=== PATIENT | male | born 1950 | race Caucasian/White ===

== ENCOUNTER → 2023-10-18 10:37 | Outpatient (REF) | payer OTHER, SELFPAY | LOC: RAD 10:37 | PROVIDERS: ATTENDING PHYSICIAN Nurse Practitioner Family; FAMILY PHYSICIAN Internal Medicine | DX: R05.1 Acute cough (principal) | CPT/HCPCS: 71046 ==

== ENCOUNTER → 2024-04-11 08:28 | Outpatient (REF) | payer OTHER, SELFPAY | LOC: MRI 3T 08:28 | PROVIDERS: ATTENDING PHYSICIAN Physical Medicine & Rehabilitation; FAMILY PHYSICIAN Internal Medicine | DX: M54.51 Vertebrogenic low back pain (principal) | CPT/HCPCS: 72148 ==

== ENCOUNTER 2024-05-28 11:59 | Emergency (ER) | payer OTHER, SELFPAY ==
[2024-05-28 12:00] VITALS: BP 127/63
--- NOTE | 2024-05-28 13:57 | ED.GENMED ---
History of Present Illness
General
Chief Complaint: Musculo-Skeletal Complaint
Time Seen by Provider: 05/28/24 13:27
History of Present Illness
History of Present Illness:
73-year-old male with history of kidney disease, diabetes, hypertension, depression presenting to the emergency department for left upper extremity pain. Patient reports symptoms for the past week. He is unsure of any inciting injury or trauma, is
unsure if he slept wrong on his arm. He notes the pain radiates to his elbow and upper chest. He called his service clerk who advised to come to the hospital. Denies any difficulty breathing. Does not feel that the pain is positional. Denies
difficulty breathing. Denies fever or cough. Denies additional acute medical complaint
Past History
Past History
ED Past Medical History: CAD, CHF, COPD, GERD, NIDDM, [place], Psychiatric (depression, Anxiety, PTSD), Other (UC, sleep apnea, previous empyema 12 years ago. DVT, Urinary retention) and Other (Chronic pain, ulcerative colitis with no treatment
currently, chronic renal insufficiency)
ED Past Surgical History: Orthopedic (amputation left great toe, Back surgery, ) and Other (Thoracotomy)
Social History
Tobacco: Former smoker
Alcohol: None
Personal:
Living: alone
Employment: Employed
Family History
Family History: Other (Mother with non-Hodgkin's lymphoma, father with alcohol brother with alcohol use)
Phy Exam
Physical Exam
Physical Exam:
General: Well-appearing, no clinical signs of dehydration, nontoxic and in no acute distress
HEENT: protecting airway
Neck: appears supple
CV: Normal heart rate, regular rhythm
Resp: No accessory muscle use, no increased work of breathing, lungs clear to auscultation bilaterally
Abd: no distension
Extremities: No deformities, no swelling. Reproducible tenderness to the left shoulder region, anteriorly. Range of motion intact. No swelling or redness.
Neuro: alert, no focal neurologic deficit
: deferred
Rectal: deferred
Psych: Normal affect
Skin: Intact
Course
Orders/Labs/Results
Orders:
Orders
05/28/24 12:04
Electrocardiogram (*1) Urgent
Reason for Study: Other
Other Reason for Exam: left arm pain
EKG- Treatment ONCE
05/28/24 13:53
Shoulder, Left 2 View CR [CR Shoulder - Left Min 2 View*] Urgent
Comment:
Reason For Exam: pain
05/28/24 14:35
Complete Blood Count/With Diff Urgent
Comprehensive Metabolic Panel Urgent
Troponin I Urgent
Abnormal Lab Results
05/28/24
14:35
RBC 4.53 L 10^6/uL
(4.70-6.10)
Abs Immat Gran (auto) 0.1 H 10^3/uL
(0-0.05)
Absolute Monos (auto) 0.7 H 10^3/uL
(0.1-0.6)
Immature Gran % 0.8 H %
(0-0.5)
Monocytes % 11.0 H %
(1.7-9.3)
Chloride 96 L mmol/L
(98-107)
Carbon Dioxide 40 H mmol/L
(22-30)
BUN 42 H mg/dl
(9-20)
Creatinine 1.7 H mg/dL
(0.7-1.3)
Glucose 190 H mg/dl
(70-99)
05/28/24 14:35
05/28/24 14:35
Vital Signs
Initial and Last Documented VS:
Initial Vital Signs
Temp Pulse Resp BP Pulse Ox
98.4 F 82 18 127/63 96
05/28/24 12:00 05/28/24 12:00 05/28/24 12:00 05/28/24 12:00 05/28/24 12:00
Last Documented Vital Signs
Temp Pulse Resp BP Pulse Ox
98.4 F 69 17 115/64 96
05/28/24 12:00 05/28/24 15:00 05/28/24 15:00 05/28/24 15:00 05/28/24 12:00
MDM/Problems Addressed
MDM/Problems Addressed:
73-year-old male with history of high blood pressure, diabetes, depression, chronic kidney disease presenting left upper extremity pain for a week. Vital signs are normal.
On exam, patient is resting comfortably, no acute distress or discomfort. EKG obtained on arrival, nonischemic. Reproducible tenderness to the left shoulder region with suspicion for musculoskeletal etiology to patient's symptoms. However patient
does have significant comorbidities and cardiac risk factors, so for this reason we will obtain laboratory analysis including troponin. Will obtain x-ray imaging of the shoulder, suspected arthritic component.
16:00 -patient's labs unremarkable, chronic kidney disease. X-ray without findings of fracture or malalignment. Patient remained stable. Feel stable for discharge with outpatient follow-up and supportive therapy for suspected musculoskeletal
shoulder pain. Return precautions discussed and patient verbalized understanding
*EKG
Interpreted by ED Provider?: Yes
EKG Intrepretation Date: 05/28/24
EKG Intrepretation Time: 14:00
Interpretation: normal
Comparison EKG: no changes (11/28/22)
Heart Rate: 76
Rate: normal
Rhythm: sinus
[place]: normal axis
Interval: normal interval
QRS Pattern: normal QRS
Ischemia: no ischemia
*Critical Care Note
Total Time (30-74mins, 75-104mins- exclusive of procedures): Not Applicable
ED Attending Note
-
Portions of this chart may have been created with voice recognition software.� Occasional wrong word or��sound alike� substitutions may have occurred due to the inherent limitations of voice recognition software.
Discharge Plan
Departure
Prescriptions:
No Action
aspirin 81 MG tablet,delayed release (DR/EC)
81 mg PO DAILY
bupropion HCl 150 MG tablet extended release 24 hr
450 mg PO DAILY
mirtazapine 15 MG tablet
45 mg PO HS
furosemide 40 MG tablet
40 mg PO DAILY
glipizide 10 MG tablet
10 mg PO DAILY
carvedilol 3.125 MG tablet
6.25 mg PO BID
Jardiance 10 MG tablet
10 mg PO DAILY
Rx Instructions:
10/09/2022, patient receives samples
metformin 500 MG tablet
500 mg PO QPM
Januvia 50 MG tablet
50 mg PO DAILY
Rx Instructions:
10/09/2022, patient receives samples
fenofibrate nanocrystallized 48 MG tablet
160 mg PO QPM
metolazone 2.5 MG tablet
2.5 mg PO MOWEFRSA
polyethylene glycol 3350 17 GRAMS powder in packet
17 grams PO DAILY 0RF
Metamucil 3.4 gram/5.4 gram Powder
1 tbsp PO DAILY
tamsulosin [Flomax] 0.4 mg Capsule
0.8 mg PO DAILY
Rx Instructions:
pt states he is not compliant with; states it doesn't help; 10/09/2022, [facility]
escitalopram oxalate 10 mg Tablet
10 mg PO DAILY
atorvastatin 80 mg Tablet
80 mg PO QPM
ipratropium-albuterol 0.5 mg-3 mg(2.5 mg base)/3 mL Solution For Nebulization
3 ml inhalation R TID Qty: 180 0RF
guaifenesin 600 mg Tablet Extended Release 12hr
1,200 mg PO Q12 Qty: 14 0RF
pantoprazole 40 mg Tablet,Delayed Release (Dr/Ec)
40 mg PO BID Qty: 60 0RF
fentanyl 37.5 mcg/hour patch 72 hour
1 patch transdermal Q72H Qty: 5 0RF
doxycycline hyclate 100 mg Capsule
100 mg PO Q12 Qty: 6 0RF
cefdinir 300 mg Capsule
300 mg PO Q12 Qty: 6 0RF
Referrals:
Edilberto Beatty Jr., DO [Family Provider] -
Interventions
Interventions:
*Risk Screen - Suicide Last Done: 05/28/24 12:00
*General Assessment Last Done: 05/28/24 12:00
*Neglect/Abuse Screening Last Done: 05/28/24 12:00
*ED- Fall Risk Assessment Last Done: 05/28/24 15:17
*ED COVID-19 Vaccine History Last Done: 05/28/24 12:00
ED-Musculoskeletal Assessment Last Done: 05/28/24 14:36
Discharge Date and Time
Print Language: TAJIK
[2024-05-28 14:36] VITALS: BMI 35.5
[2024-05-28 14:39] VITALS: BP 124/74
[2024-05-28 15:00] VITALS: BP 115/64
[2024-05-28 15:00] LABS: % Basophils 1.3 % (0-2); % Eosinophils 5.1 % (0-6); % Immature Granulocytes 0.8 % (0-0.5); % Lymphocytes 29.4 % (20.5-51.1); % Neutrophils 52.4 % (42.2-75.2); Absolute Basophils 0.1 10^3/uL (0-0.2); Absolute Eosinophils 0.3 10^3/uL (0-0.7); Absolute Immature Granulocytes 0.1 10^3/uL (0-0.05); Absolute Lymphocytes 1.9 10^3/uL (1.2-3.4); Absolute Monocytes 0.7 10^3/uL (0.1-0.6); Absolute Neutrophils 3.3 10^3/uL (1.4-6.5); Hematocrit 41.1 % (39.0-52.0); Hemoglobin 13.6 g/dL (13.0-18.0); Mean Corp Hgb Conc. 33.1 g/dL (33.0-37.0); Mean Corpuscular Volume 90.7 fL (80.0-94.0); Mean Platelet Volume 9.2 fL (7.4-10.4); Nucleated Red Blood Cells % 0 % (-); Platelet Count 242 10^3/uL (130-400); Red Blood Cell Count 4.53 10^6/uL (4.70-6.10); Red Cell Dist. Width 13.2 % (11.5-14.5); White Blood Cell Count 6.3 10^3/uL (4.8-10.8)
[2024-05-28 15:07] LABS: ALT (SGPT) 22 U/L (0-50); AST (SGOT) 24 U/L (17-59); Albumin 4.1 g/dl (3.5-5.0); Alkaline Phosphatase 72 U/L (38-126); Blood Urea Nitrogen 42 mg/dl (9-20); Calcium 10.1 mg/dl (8.4-10.2); Carbon Dioxide 40 mmol/L (22-30); Chloride 96 mmol/L (98-107); Estimated Creatinine Clearance 56 ml/min; Glucose 190 mg/dl (70-99); Potassium 4.1 mmol/L (3.5-5.1); Sodium 139 mmol/L (135-145); Total Bilirubin 0.3 mg/dl (0.2-1.3); Total Protein 7.1 g/dl (6.3-8.2); eGFR 42.57
[2024-05-28 15:18] LABS: Troponin I < 0.012 ng/ml
[2024-05-28 16:00] VITALS: BP 118/67
== END 2024-05-28 16:56 | disposition home or self-care (01) ==
LOC: EMR 11:59
PROVIDERS: EMERGENCY PHYSICIAN Student in an Organized Health Care Education/Training Program; FAMILY PHYSICIAN Family Medicine
DX: M79.602 Pain in left arm (principal); I25.10 Atherosclerotic heart disease of native coronary artery without angina pectoris; E11.9 Type 2 diabetes mellitus without complications; G47.30 Sleep apnea, unspecified; I13.0 Hypertensive heart and chronic kidney disease with heart failure and stage 1 through stage 4 chronic kidney disease, or unspecified chronic kidney disease; I50.9 Heart failure, unspecified; N18.9 Chronic kidney disease, unspecified; J44.9 Chronic obstructive pulmonary disease, unspecified; Z86.718 Personal history of other venous thrombosis and embolism; Z87.891 Personal history of nicotine dependence
CPT/HCPCS: 99284; 73030; 80053; 84484; 85025; 93005

== ENCOUNTER → 2024-06-09 13:03 | Outpatient (REF) | payer OTHER, SELFPAY | LOC: RAD 13:03 | PROVIDERS: ATTENDING PHYSICIAN Internal Medicine Rheumatology; FAMILY PHYSICIAN Internal Medicine; OTHER PHYSICIAN Family Medicine; OTHER PHYSICIAN Internal Medicine Rheumatology | DX: G89.29 Other chronic pain (principal); M25.531 Pain in right wrist; M79.643 Pain in unspecified hand | CPT/HCPCS: 73110; 73130 ==

== ENCOUNTER → 2024-07-01 11:12 | Outpatient (REF) | payer OTHER, SELFPAY | LOC: RAD 11:12 | PROVIDERS: ATTENDING PHYSICIAN Internal Medicine Rheumatology; FAMILY PHYSICIAN Internal Medicine | DX: M81.0 Age-related osteoporosis without current pathological fracture (principal); M81.8 Other osteoporosis without current pathological fracture | CPT/HCPCS: 77080 ==

== ENCOUNTER → 2024-07-13 13:33 | Outpatient (REF) | payer OTHER, SELFPAY | LOC: RAD 13:33 | PROVIDERS: ATTENDING PHYSICIAN Family Medicine | DX: M25.531 Pain in right wrist (principal); M25.532 Pain in left wrist | CPT/HCPCS: 73110 ==

== ENCOUNTER 2024-08-21 17:02 | Emergency (ER) | payer OTHER, SELFPAY ==
[2024-08-21 17:04] VITALS: BP 145/85
--- NOTE | 2024-08-21 19:08 | ED.GENMED ---
History of Present Illness
General
Chief Complaint: DVT/Possible Blood Clot
Source: patient
Exam Limitations: none
Time Seen by Provider: 08/21/24 18:26
Nursing documentation reviewed up to this point in time: agreed with
History of Present Illness
History of Present Illness:
73-year-old male presents Emergency Department due to left elbow swelling. This been ongoing for 2 to 3 days. He called his primary care doctor who directed him to the emergency department..
Past History
Past History
ED Past Medical History: CAD, CHF, COPD, GERD, NIDDM, [place], Psychiatric (depression, Anxiety, PTSD), Other (UC, sleep apnea, previous empyema 12 years ago. DVT, Urinary retention) and Other (Chronic pain, ulcerative colitis with no treatment
currently, chronic renal insufficiency)
ED Past Surgical History: Orthopedic (amputation left great toe, Back surgery, ) and Other (Thoracotomy)
Social History
Tobacco: Former smoker
Alcohol: None
Personal:
Living: alone
Employment: Employed
Family History
Family History: Other (Mother with non-Hodgkin's lymphoma, father with alcohol brother with alcohol use)
Review of Systems
Review of Systems
Allergies reviewed?: Yes
All Other Systems: Not applicable
Constitutional: Reports no symptoms
EENT: Reports no symptoms
Respiratory: Reports no symptoms
Cardiac: Reports no symptoms
ABD/GI: Reports no symptoms
: Reports no symptoms
Musculoskeletal: Reports joint swelling
Skin: Reports no symptoms
Neurological: Reports no symptoms
Endocrine: Reports no symptoms
Hematologic/Lymphatic: Reports no symptoms
Psychiatric: Reports no symptoms
Phy Exam
Physical Exam
Physical Exam:
Physical Exam
General: no apparent distress, not acutely ill
Neck: supple. no meningeal signs. normal posterior pharynx
Heart: equal radial pulses.
HEENT: Pupils equal round reactive to light, EOMI
Lungs: no acute respiratory distress. GFR with Mounjaro 5
Abdomen: normal bowel sounds. not tender. no CVAT
Neuro: alert and oriented. no focal neurological deficits
Skin: no rash
Psychiatric: well kept. interactive and cooperative
Extremities: olecranon bursa swelling. no calf tenderness. negative homans. good distal pulses
Course
Orders/Labs/Results
Orders:
Orders
08/21/24 19:07
CR Elbow - Left Min 3 Views Urgent
Comment:
Reason For Exam: left elbow swelling
08/21/24 19:43
[place] Wrap Left-Treatment ONCE
Comment: left forearm elbow, area of swelling
Vital Signs
Initial and Last Documented VS:
Initial Vital Signs
Temp Pulse Resp BP Pulse Ox
98.0 F 84 18 145/85 94
08/21/24 17:04 08/21/24 17:04 08/21/24 17:04 08/21/24 17:04 08/21/24 17:04
Last Documented Vital Signs
Temp Pulse Resp BP Pulse Ox
98 F 72 18 97/71 90
08/21/24 19:20 08/21/24 19:20 08/21/24 19:20 08/21/24 19:20 08/21/24 19:20
MDM/Problems Addressed
Differential Diagnosis Includes:
Infected bursitis, DVT
MDM/Problems Addressed:
73-year-old male with left olecranon bursitis. Does not appear infected, no rash or erythema. Treat with [place] wrap, follow-up with orthopedics.
Chronic conditions affecting care: Cardiomyopathy, COPD and Other (Ulcerative colitis)
*Radiology
Radiology exam reviewed: preliminary read by ED provider (Left elbow x-ray no signs of fracture)
*Pulse Oximetry
Patient hypoxic: no
*Critical Care Note
Total Time (30-74mins, 75-104mins- exclusive of procedures): Not Applicable
Data Reviewed
Further Testing Considered But Not Given:
US not indicated
Patient Management
Social determinants of health affecting care: Living situation and Strong social support
Escalation/DeEscalation of care consider admission/obs:
admit not indicated
ED Attending Note
-
Portions of this chart may have been created with voice recognition software.� Occasional wrong word or��sound alike� substitutions may have occurred due to the inherent limitations of voice recognition software.
Discharge Plan
Departure
Patient Disposition: Home (Routine Discharge)
Date of Disposition: 08/21/24
Time of Disposition: 19:47
Patient with high blood pressure during this ER visit?: No
Condition: Good
Discharge Problem:
Olecranon bursitis, left elbow
Instructions: Bursitis - ED discharge instructions
Prescriptions:
No Action
aspirin 81 MG tablet,delayed release (DR/EC)
81 mg PO DAILY
bupropion HCl 150 MG tablet extended release 24 hr
450 mg PO DAILY
mirtazapine 15 MG tablet
45 mg PO HS
furosemide 40 MG tablet
40 mg PO DAILY
glipizide 10 MG tablet
10 mg PO DAILY
carvedilol 3.125 MG tablet
6.25 mg PO BID
Jardiance 10 MG tablet
10 mg PO DAILY
Rx Instructions:
10/09/2022, patient receives samples
metformin 500 MG tablet
500 mg PO QPM
Januvia 50 MG tablet
50 mg PO DAILY
Rx Instructions:
10/09/2022, patient receives samples
fenofibrate nanocrystallized 48 MG tablet
160 mg PO QPM
metolazone 2.5 MG tablet
2.5 mg PO MOWEFRSA
polyethylene glycol 3350 17 GRAMS powder in packet
17 grams PO DAILY 0RF
Metamucil 3.4 gram/5.4 gram Powder
1 tbsp PO DAILY
tamsulosin [Flomax] 0.4 mg Capsule
0.8 mg PO DAILY
Rx Instructions:
pt states he is not compliant with; states it doesn't help; 10/09/2022, cannot find medication in the [facility]
escitalopram oxalate 10 mg Tablet
10 mg PO DAILY
atorvastatin 80 mg Tablet
80 mg PO QPM
ipratropium-albuterol 0.5 mg-3 mg(2.5 mg base)/3 mL Solution For Nebulization
3 ml inhalation R TID Qty: 180 0RF
guaifenesin 600 mg Tablet Extended Release 12hr
1,200 mg PO Q12 Qty: 14 0RF
pantoprazole 40 mg Tablet,Delayed Release (Dr/Ec)
40 mg PO BID Qty: 60 0RF
fentanyl 37.5 mcg/hour patch 72 hour
1 patch transdermal Q72H Qty: 5 0RF
doxycycline hyclate 100 mg Capsule
100 mg PO Q12 Qty: 6 0RF
cefdinir 300 mg Capsule
300 mg PO Q12 Qty: 6 0RF
Referrals:
Edilberto Beatty Jr., [Family Provider, Internal Medicine]
Vinayak Nguyen MD [Active, Orthopedics] - Follow up in 2-3 days
Interventions
Interventions:
*Risk Screen - Suicide Last Done: 08/21/24 17:06
*General Assessment Last Done: 08/21/24 17:06
*Neglect/Abuse Screening Last Done: 08/21/24 17:06
*ED COVID-19 Vaccine History Last Done: 08/21/24 17:06
ED- Cardiac Assessment Last Done: 08/21/24 19:20
ED- Pulmonary Assessment Last Done: 08/21/24 19:20
ED-Peripheral Vascular Assessment Last Done: 08/21/24 19:22
ED-Skin Assessment Last Done: 08/21/24 19:20
Discharge Date and Time
Print Language: NORWEGIAN
[2024-08-21 19:20] VITALS: BP 97/71; BMI 35.0
[2024-08-21 19:59] VITALS: BP 100/78
== END 2024-08-21 20:07 | disposition home or self-care (01) ==
LOC: EMR 17:02
PROVIDERS: EMERGENCY PHYSICIAN Emergency Medicine; FAMILY PHYSICIAN Family Medicine
DX: M70.22 Olecranon bursitis, left elbow (principal); I25.10 Atherosclerotic heart disease of native coronary artery without angina pectoris; E11.9 Type 2 diabetes mellitus without complications; G47.30 Sleep apnea, unspecified; G89.29 Other chronic pain; I50.9 Heart failure, unspecified; J44.9 Chronic obstructive pulmonary disease, unspecified; Z86.718 Personal history of other venous thrombosis and embolism; Z87.891 Personal history of nicotine dependence
CPT/HCPCS: 99283; 73080

== ENCOUNTER 2024-08-28 13:36 | Emergency (ER) | payer OTHER, SELFPAY ==
[2024-08-28 13:39] VITALS: BP 96/69
[2024-08-28 14:07] LABS: % Eosinophils 5.3 % (0-6); % Immature Granulocytes 0.7 % (0-0.5); % Lymphocytes 21.9 % (20.5-51.1); % Monocytes 9.6 % (1.7-9.3); % Neutrophils 61.5 % (42.2-75.2); Absolute Basophils 0.1 10^3/uL (0-0.2); Absolute Eosinophils 0.5 10^3/uL (0-0.7); Absolute Immature Granulocytes 0.1 10^3/uL (0-0.05); Absolute Lymphocytes 1.9 10^3/uL (1.2-3.4); Absolute Monocytes 0.9 10^3/uL (0.1-0.6); Absolute Neutrophils 5.4 10^3/uL (1.4-6.5); Hematocrit 42.2 % (39.0-52.0); Mean Corp Hgb Conc. 33.2 g/dL (33.0-37.0); Mean Corpuscular Hgb 29.3 pg (27.0-31.0); Mean Corpuscular Volume 88.3 fL (80.0-94.0); Nucleated Red Blood Cells % 0 % (-); Platelet Count 282 10^3/uL (130-400); Red Blood Cell Count 4.78 10^6/uL (4.70-6.10); Red Cell Dist. Width 13.4 % (11.5-14.5); White Blood Cell Count 8.8 10^3/uL (4.8-10.8)
[2024-08-28 14:24] LABS: ALT (SGPT) 20 U/L (0-50); AST (SGOT) 19 U/L (17-59); Albumin 4.4 g/dl (3.5-5.0); Alkaline Phosphatase 64 U/L (38-126); Blood Urea Nitrogen 37 mg/dl (9-20); Carbon Dioxide 26 mmol/L (22-30); Chloride 104 mmol/L (98-107); Glucose 313 mg/dl (70-99); Potassium 4.5 mmol/L (3.5-5.1); Sodium 139 mmol/L (135-145); Total Bilirubin 0.4 mg/dl (0.2-1.3); Total Protein 7.6 g/dl (6.3-8.2)
[2024-08-28 14:35] LABS: NT-proBNP 135 pg/ml; Troponin I < 0.012 ng/ml
--- NOTE | 2024-08-28 15:51 | ED.GENMED ---
History of Present Illness
General
Chief Complaint: Breathing Problem
Source: patient
Exam Limitations: none
Time Seen by Provider: 08/28/24 15:31
History of Present Illness
History of Present Illness:
74-year-old male with multiple vague complaints. He states he has been generally weak and fatigued. He has a history of congestive heart failure. He describes some episodes as 'syncope.' However he does not describe passing out. He gets weak to
the point where he feels like his get a fall. He never passes out or lose consciousness. There is no associated chest pain. He denies any unilateral numbness or weakness. There is no fever. This is been going on for quite some time. He called
his ethics instructor earlier in the week and advised him to come here to the emergency room. He lives by himself. He has no family support. No other complaints at this time
Past History
Past History
ED Past Medical History: CAD, CHF, COPD, GERD, NIDDM, [place], Psychiatric (depression, Anxiety, PTSD), Other (UC, sleep apnea, previous empyema 12 years ago. DVT, Urinary retention) and Other (Chronic pain, ulcerative colitis with no treatment
currently, chronic renal insufficiency)
ED Past Surgical History: Orthopedic (amputation left great toe, Back surgery, ) and Other (Thoracotomy)
Social History
Tobacco: Former smoker
Alcohol: None
Personal:
Living: alone
Employment: Employed
Family History
Family History: Other (Mother with non-Hodgkin's lymphoma, father with alcohol brother with alcohol use)
Phy Exam
Physical Exam
Physical Exam:
General: Well-appearing male no acute respiratory distress
HEENT normocephalic atraumatic heart: Regular rate and rhythm
Lungs: Clear no wheeze
Extremities: No cyanosis
Scores
Heart Failure Risk
Heart Failure Risk Score: Not Applicable
Course
Orders/Labs/Results
Orders:
Orders
08/28/24 13:39
Electrocardiogram (*1) Urgent
Reason for Study: Other
Other Reason for Exam: Respiratory Distress
Cardiac Monitoring- Treatment ONCE
EKG- Treatment ONCE
IV Insert/Care/Rem.- Treatment PRN
CR Chest - 2 Views Urgent
Comment:
Reason For Exam: respiratory distress
O2 Therapy [RESP] Urgent
Titrate/Wean O2 to maintain O2 sat greater than (%): 93
Special Instructions: TO MAINTAIN CONTINUOUS O2 SATS >/= 93%
Pulse Ox/cont/shift [RESP] Urgent
Quantity: 1
Special Instructions: continuous pulse ox
08/28/24 14:00
Complete Blood Count/With Diff Urgent
Comprehensive Metabolic Panel Urgent
NT-proBNP Urgent
Troponin I Urgent
08/28/24 15:50
CT Head W/o Iv Contrast Urgent
Comment:
Reason For Exam: falls
Abnormal Lab Results
08/28/24
14:00
Abs Immat Gran (auto) 0.1 H 10^3/uL
(0-0.05)
Absolute Monos (auto) 0.9 H 10^3/uL
(0.1-0.6)
Immature Gran % 0.7 H %
(0-0.5)
Monocytes % 9.6 H %
(1.7-9.3)
BUN 37 H mg/dl
(9-20)
Creatinine 1.8 H mg/dL
(0.7-1.3)
Glucose 313 H mg/dl
(70-99)
08/28/24 14:00
08/28/24 14:00
Vital Signs
Initial and Last Documented VS:
Initial Vital Signs
Temp Pulse Resp BP Pulse Ox
97.5 F 89 22 96/69 94
08/28/24 13:39 08/28/24 13:39 08/28/24 13:39 08/28/24 13:39 08/28/24 13:39
Last Documented Vital Signs
Temp Pulse Resp BP Pulse Ox
97.5 F 72 15 90/66 93
08/28/24 13:39 08/28/24 19:15 08/28/24 19:15 08/28/24 19:00 08/28/24 19:15
*Critical Care Note
Total Time (30-74mins, 75-104mins- exclusive of procedures): Not Applicable
Update Note
Update Note:
Chest x-ray demonstrates questionable pneumonia at the base. Patient did run a little low and her's oxygen 89% was placed on 2 L nasal cannula oxygen. White blood cell count is normal no fever here. Received a call from the nurse stating patient
wanted to go home. He expressed that there was his birthday recently in 5 days coming up. He lost his children that moved away and are now estranged from them years ago and he is quite depressed about this he wants to just go home to his
apartment. He is not suicidal. Will cover him for the potential for pneumonia. Explained to him that we do justify admission and would recommend it however he declined at this time
ED Attending Note
-
Portions of this chart may have been created with voice recognition software.� Occasional wrong word or��sound alike� substitutions may have occurred due to the inherent limitations of voice recognition software.
Discharge Plan
Departure
Patient Disposition: Home (Routine Discharge)
Date of Disposition: 08/28/24
Time of Disposition: 19:29
Patient with high blood pressure during this ER visit?: No
Discharge Problem:
Fatigue
Instructions: Shortness of Breath (Dyspnea) (DC)
Prescriptions:
New
doxycycline hyclate 100 mg tablet
100 mg PO BID Qty: 14 0RF
No Action
aspirin 81 MG tablet,delayed release (DR/EC)
81 mg PO DAILY
bupropion HCl 150 MG tablet extended release 24 hr
450 mg PO DAILY
mirtazapine 15 MG tablet
45 mg PO HS
furosemide 40 MG tablet
40 mg PO DAILY
glipizide 10 MG tablet
10 mg PO DAILY
carvedilol 3.125 MG tablet
6.25 mg PO BID
Jardiance 10 MG tablet
10 mg PO DAILY
Rx Instructions:
10/09/2022, patient receives samples
metformin 500 MG tablet
500 mg PO QPM
Januvia 50 MG tablet
50 mg PO DAILY
Rx Instructions:
10/09/2022, patient receives samples
fenofibrate nanocrystallized 48 MG tablet
160 mg PO QPM
metolazone 2.5 MG tablet
2.5 mg PO MOWEFRSA
polyethylene glycol 3350 17 GRAMS powder in packet
17 grams PO DAILY 0RF
Metamucil 3.4 gram/5.4 gram Powder
1 tbsp PO DAILY
tamsulosin [Flomax] 0.4 mg Capsule
0.8 mg PO DAILY
Rx Instructions:
pt states he is not compliant with; states it doesn't help; 10/09/2022, cannot find medication in the [facility]
escitalopram oxalate 10 mg Tablet
10 mg PO DAILY
atorvastatin 80 mg Tablet
80 mg PO QPM
ipratropium-albuterol 0.5 mg-3 mg(2.5 mg base)/3 mL Solution For Nebulization
3 ml inhalation R TID Qty: 180 0RF
guaifenesin 600 mg Tablet Extended Release 12hr
1,200 mg PO Q12 Qty: 14 0RF
pantoprazole 40 mg Tablet,Delayed Release (Dr/Ec)
40 mg PO BID Qty: 60 0RF
fentanyl 37.5 mcg/hour patch 72 hour
1 patch transdermal Q72H Qty: 5 0RF
doxycycline hyclate 100 mg Capsule
100 mg PO Q12 Qty: 6 0RF
cefdinir 300 mg Capsule
300 mg PO Q12 Qty: 6 0RF
Referrals:
Edilberto Beatty Jr., DO [Family Provider, Internal Medicine]
Activity Restrictions/Additional Instructions:
As discussed, there is questionable pneumonia
Interventions
Interventions:
*Risk Screen - Suicide Last Done: 08/28/24 13:39
*Neglect/Abuse Screening Last Done: 08/28/24 13:39
ED- Cardiac Assessment Last Done: 08/28/24 17:28
ED- Pulmonary Assessment Last Done: 08/28/24 17:28
Discharge Date and Time
Print Language: SAMI
[2024-08-28 18:21] VITALS: BP 96/62
[2024-08-28 19:00] VITALS: BP 90/66
[2024-08-28] MEDS: VIBRAMYCIN 100 MG PO (19:42)
== END 2024-08-28 20:04 | disposition home or self-care (01) ==
LOC: EMR 13:36
PROVIDERS: Student in an Organized Health Care Education/Training Program; EMERGENCY PHYSICIAN Emergency Medicine; FAMILY PHYSICIAN Family Medicine
DX: R53.1 Weakness (principal); R53.83 Other fatigue; I25.10 Atherosclerotic heart disease of native coronary artery without angina pectoris; I50.9 Heart failure, unspecified; K21.9 Gastro-esophageal reflux disease without esophagitis; I25.2 Old myocardial infarction; E11.9 Type 2 diabetes mellitus without complications; F41.8 Other specified anxiety disorders; G47.30 Sleep apnea, unspecified; I49.3 Ventricular premature depolarization; J44.9 Chronic obstructive pulmonary disease, unspecified; Z86.718 Personal history of other venous thrombosis and embolism; Z87.891 Personal history of nicotine dependence
CPT/HCPCS: 99284; 70450; 71046; 80053; 83880; 84484; 85025; 93005

== ENCOUNTER → 2024-10-01 10:28 | Outpatient (REF) | payer OTHER, SELFPAY ==
--- NOTE | 2024-10-01 11:46 | CARDSERVDEF ---
Echocardiogram with Definity completed after protocol screening completed. Allergies verified.
Patent IV site: Right median antecubital 22 G PC
IV site flushed with 0.9% NaCl pre and post administration.
Diluted bolus method utilized to enhance visualization of ventricular ruiz.
Total volume given: ___3_ mL
Patient tolerated all procedures well without complications.
Heplock D/C ed at 1142, site clear, no redness, no edema. Pressure held, no bleeding, 2x2 applied and taped. Pt offers no complaints.
== END ==
LOC: RCS 10:28
PROVIDERS: ATTENDING PHYSICIAN Internal Medicine Critical Care Medicine; FAMILY PHYSICIAN Family Medicine
DX: I50.9 Heart failure, unspecified (principal); J18.9 Pneumonia, unspecified organism
CPT/HCPCS: 71046; 93306; Q9957

== ENCOUNTER → 2024-10-13 08:03 | Outpatient (REF) | payer OTHER, SELFPAY | LOC: EMG 08:03 | PROVIDERS: ATTENDING PHYSICIAN Orthopaedic Surgery Hand Surgery; FAMILY PHYSICIAN Family Medicine | DX: R22.31 Localized swelling, mass and lump, right upper limb (principal); G56.01 Carpal tunnel syndrome, right upper limb; G62.9 Polyneuropathy, unspecified; R20.0 Anesthesia of skin | CPT/HCPCS: 95886; 95909 ==

== ENCOUNTER → 2024-10-31 10:20 | Outpatient (REF) | payer OTHER, SELFPAY | LOC: PAVMRI 10:20 | PROVIDERS: ATTENDING PHYSICIAN Orthopaedic Surgery Hand Surgery; FAMILY PHYSICIAN Family Medicine | DX: R22.31 Localized swelling, mass and lump, right upper limb (principal) | CPT/HCPCS: 73221 ==

== ENCOUNTER → 2024-11-18 13:23 | Outpatient (REF) | payer OTHER, SELFPAY | LOC: RAD 13:23 | PROVIDERS: ATTENDING PHYSICIAN Registered Nurse; FAMILY PHYSICIAN Family Medicine | DX: M25.512 Pain in left shoulder (principal) | CPT/HCPCS: 73030 ==

== ENCOUNTER → 2024-12-15 11:16 | Outpatient (REF) | payer OTHER, SELFPAY | LOC: RAD 11:16 | PROVIDERS: ATTENDING PHYSICIAN Registered Nurse | DX: R55 Syncope and collapse (principal) | CPT/HCPCS: 93880 ==